=== PATIENT | male | born 1965 | race Caucasian/White ===

== ENCOUNTER → 2017-12-23 | Outpatient (CLI) | payer OTHER ==
[~2017-12-23] MED LIST: CEPH500 PO; HYDACE5325 PO; IBUP800 PO; Keflex500 MG PO; NAPR500 PO; Percocet 5-3251 EACH PO; RXHYD5325 PO; SULTRIDS PO; TRAM50 PO
[2017-12-23 17:47] LABS: Creatinine, Urine Random 58.8 mg/dL (27.00-270.00)
[2017-12-23 17:49] LABS: Microalb/Creat Ratio UR, Rand 8.758 mg/g (0.000-30.000); Microalbumin, Random Urine 5.15 mg/L (0.000-20.000)
== END ==
LOC: LAB 12:24 → LAB SHORT 12:24
PROVIDERS: Nurse Practitioner Family
DX: E11.9 Type 2 diabetes mellitus without complications (principal)
CPT/HCPCS: 82043; 82570

== ENCOUNTER 2018-04-29 00:23 | Emergency (ER) | payer OTHER ==
[~2018-04-29] VITALS: Ht 185.4 cm; Wt 122.5 kg
[2018-04-29] MEDS ORDERED: NIX59 ML TOP (00:53)
[2018-04-29] MEDS ORDERED: BENADRYL25 MG PO (00:53)
== END 2018-04-29 01:06 | disposition home or self-care (01) ==
LOC: ER 00:23
DX: B86 Scabies (principal); F17.200 Nicotine dependence, unspecified, uncomplicated
CPT/HCPCS: Q0163

== ENCOUNTER 2019-07-04 12:36 | Emergency (ER) | payer OTHER ==
[~2019-07-04] VITALS: Ht 185.4 cm; Wt 122.5 kg
[~2019-07-04 12:36] MED LIST changes: +BENADRYL25 MG PO; +NIX59 ML TOP
[2019-07-04] MEDS ORDERED: CYCL10 PO (13:05)
[2019-07-04] MEDS ORDERED: DICL75ER PO (13:05)
[2019-07-04] MEDS ORDERED: PANT40 PO (13:08)
[2019-07-04] MEDS ORDERED: BUPR100 PO (13:08)
[2019-07-04] MEDS ORDERED: ARTHRITIS MED (13:08)
== END 2019-07-04 13:16 | disposition home or self-care (01) ==
LOC: ER 12:36
DX: M26.603 Bilateral temporomandibular joint disorder, unspecified (principal); E11.9 Type 2 diabetes mellitus without complications; F17.200 Nicotine dependence, unspecified, uncomplicated; Z86.73 Personal history of transient ischemic attack (TIA), and cerebral infarction without residual deficits
CPT/HCPCS: 99283

== ENCOUNTER 2020-09-24 22:17 | Emergency (ER) | payer OTHER ==
[~2020-09-24] VITALS: Ht 185.4 cm; Wt 102.1 kg
[~2020-09-24 22:17] MED LIST changes: +ALBU90OI INH; +ARTHRITIS MED; +BUPR100 PO; +CYCL10 PO; +DICL75ER PO; +PANT40 PO
[2020-09-25] MEDS ORDERED: CEPH500 PO (00:08)
== END 2020-09-25 00:48 | disposition home or self-care (01) ==
LOC: ER 22:17
DX: S62.636B Displaced fracture of distal phalanx of right little finger, initial encounter for open fracture (principal); K21.9 Gastro-esophageal reflux disease without esophagitis; J44.9 Chronic obstructive pulmonary disease, unspecified; E11.9 Type 2 diabetes mellitus without complications; F17.200 Nicotine dependence, unspecified, uncomplicated; Z86.73 Personal history of transient ischemic attack (TIA), and cerebral infarction without residual deficits; Z23 Encounter for immunization; W27.8XXA Contact with other nonpowered hand tool, initial encounter
CPT/HCPCS: 73140; 90471; 90714; 99283-25; A9270

== ENCOUNTER 2021-05-11 07:46 | Inpatient (IN) | payer OTHER ==
[~2021-05-11] VITALS: Ht 185.4 cm; Wt 111.0 kg
[2021-05-11 08:21] LABS: Hematocrit 42.5 % (37.0-53.0); Hemoglobin 14.7 g/dL (13.5-17.5); Mean Corpuscular HGB 30.2 pg (26.0-34.0); Mean Corpuscular HGB Conc 34.6 g/dL (31.5-36.5); Mean Corpuscular Volume 87 fL (80-100); Mean Platelet Volume 10.1 fL (9.1-12.4); Platelet Count 147 K/mm3 (150-400); RDW Coefficient Variation 12.3 % (11.7-14.2); RDW Standard Deviation 39.7 fL (35.1-46.3); Red Blood Cell Count 4.86 M/mm3 (4.30-5.90); White Blood Cell Count 8.66 K/mm3 (4.00-11.30)
[2021-05-11 08:44] LABS: Alanine Aminotransfer (ALT/SGP 54 U/L (12-78); Albumin, Blood 2.6 g/dL (3.4-5.0); Albumin/Globulin Ratio 0.6 (0.8-1.8); Alk Phos 61 U/L (50-136); Anion Gap 11 mmol/L (6-16); Aspartate Aminotrans (AST/SGOT 76 U/L (12-37); Bilirubin, Total 0.9 mg/dL (0.1-1.0); Blood Urea Nitrogen 33 mg/dL (8-24); Bun/Creatinine Ratio 27.5 (12.0-20.0); CO2, Blood 23 mmol/L (21-32); Chloride, Blood 102 mmol/L (98-108); Globulin, Blood 4.4 g/dL (2.2-4.0); Glomerular Filtration Rate >60 (60-); Glucose, Blood 129 mg/dL (70-99); Sodium, Blood 136 mmol/L (136-145); Troponin I 0.067 ng/mL (0.000-0.040)
[2021-05-11] MEDS ORDERED: ALBU90OI INH (08:49)
[2021-05-11 08:53] LABS: BAND PERCENT MAN 37 % (0-8); BASOPHILS PERCENT MAN 0 % (0-2); EOSINOPHILS PERCENT MAN 0 % (0-6); LYMPHOCYTES % ATYPICAL MANUAL 2 % (0-0); LYMPHOCYTES ABSOLUTE MAN 1.64 K/mm3 (0.84-5.20); LYMPHOCYTES PERCENT MAN 17 % (21-46); METAMYELOCYTE ABSOLUTE MAN 0.95 K/mm3 (0.00-0.00); METAMYELOCYTE PERCENT MAN 11 % (0-0); MONOCYTES PERCENT MAN 7 % (4-13); NEUTROPHILS ABSOLUTE MAN 5.45 K/mm3 (1.96-9.15); SEG NEUTROPHILS PERCENT MAN 26 % (41-73); TOTAL CELLS COUNTED 100
[2021-05-11 10:13] LABS: SARS-Cov-2 (COVID-19) PCR, MMC NEGATIVE (NEGATIVE)
[2021-05-11 11:40] LABS: U Amphetamine Screen DETECTED; U Barbituate Screen Not Detected; U Benzodiazapine Screen Not Detected; U Buprenorphine Screen Not Detected; U Cannabinoids Screen Not Detected; U Cocaine Screen Not Detected; U Methadone Screen Not Detected; U Methamphetamine Screen DETECTED; U Opiates Screen Not Detected; U Oxycodone Screen Not Detected; U Phencyclidine Screen Not Detected; U Propoxyphene Screen Not Detected
--- NOTE | 2021-05-11 13:13 | NUR ---
Care Assumed 1205- New admit from ED Pt arrived via bed, able to stand and transfer to ICU bed. A/O to location, event, and year. Following directions, slow to respond. LS clear/dim, on 5 L via NC, SPO2 89-92%. States having CP 4/10, on/off x 3 days, states he feels pressure during deep inspiration. States having nausea but no vomiting thus far. Has productive cough but no sputum yet, will send sample. Quickly falls asleep when left alone, snoring, denies use of CPAP at home or oxygen. SIT, MAP > 65.
[2021-05-11 16:50] LABS: Source, Urine Clean Catch
[2021-05-11 17:06] LABS: Appearance, Urine Clear (Clear); Bilirubin, Urine Neg (Neg); Blood, Urine 2+ (Neg); Color, Urine Yellow (P-Yellow); Glucose Qualitative, Urine Neg (Neg); Ketones, Urine Neg (Neg); Leukocyte Esterase, Urine Neg (Neg); Nitrite, Urine Neg (Neg); Protein, Urine 2+ (Neg); Specific Gravity, Urine 1.015 (1.003-1.022); Urobilinogen, Urine NORM (Normal)
--- NOTE | 2021-05-11 17:14 | NUR ---
Provider call Spoke to LAWANDA Vance in regards to patient SBP of 140's. New orders recieved to decrease LR to 75 ml/hr and DC Vanco. Updated on pt also having loose BM. Started PT on VSL tabs. Pt able to ambulate to bedside commode, tolerated well.
[2021-05-11 17:27] LABS: Bacteria Few /hpf; Mucus Light (0-Heavy); Red Blood Cells, Urine 0-2 /hpf (0-2); Squamous Epithelial Cells Few /hpf (Few); White Blood Cells, Urine 0-2 /hpf (0-5)
--- NOTE | 2021-05-11 18:11 | NUR ---
Shift summary Pt remains A/O X4, location, event, year, and following commands. Able to ambulate to bedside commode. LR @ 75 ml/hr, MAP > 65. SIT. Remains on 5 L NC, SPO2 90'S. Snoring while sleeping. Spoke to patients girlfriend and updated on current care being provided. Watching TV currently. Will report to oncoming shift.
--- NOTE | 2021-05-11 19:30 | NUR ---
REPORT RECEIVED-CARE ASSUMED-LR INFUSING @ 75 ML/HR. PT AWAKE-WATCHING TV. CONTINUE ASSESSMENTS AND CARE.
[2021-05-12 03:29] LABS: Hematocrit 36.1 % (37.0-53.0); Hemoglobin 12.3 g/dL (13.5-17.5); Mean Corpuscular HGB 29.8 pg (26.0-34.0); Mean Corpuscular HGB Conc 34.1 g/dL (31.5-36.5); Mean Corpuscular Volume 87 fL (80-100); Mean Platelet Volume 9.8 fL (9.1-12.4); Platelet Count 138 K/mm3 (150-400); RDW Coefficient Variation 12.5 % (11.7-14.2); Red Blood Cell Count 4.13 M/mm3 (4.30-5.90); White Blood Cell Count 11.33 K/mm3 (4.00-11.30)
[2021-05-12 03:49] LABS: Alanine Aminotransfer (ALT/SGP 38 U/L (12-78); Albumin/Globulin Ratio 0.5 (0.8-1.8); Alk Phos 57 U/L (50-136); Anion Gap 7 mmol/L (6-16); Aspartate Aminotrans (AST/SGOT 47 U/L (12-37); Blood Urea Nitrogen 19 mg/dL (8-24); CO2, Blood 25 mmol/L (21-32); Calcium, Blood 8.6 mg/dL (8.5-10.1); Chloride, Blood 107 mmol/L (98-108); Creatinine, Blood 0.76 mg/dL (0.60-1.20); Glomerular Filtration Rate >60 (60-); Glucose, Blood 88 mg/dL (70-99); Magnesium, Blood 1.8 mg/dL (1.6-2.4); Potassium, Blood 3.6 mmol/L (3.5-5.5); Sodium, Blood 139 mmol/L (136-145)
[2021-05-12 03:54] LABS: BAND PERCENT MAN 30 % (0-8); BASOPHILS PERCENT MAN 0 % (0-2); EOSINOPHILS ABSOLUTE MAN 0.11 K/mm3 (0.00-0.68); EOSINOPHILS PERCENT MAN 1 % (0-6); LYMPHOCYTES ABSOLUTE MAN 1.47 K/mm3 (0.84-5.20); LYMPHOCYTES PERCENT MAN 13 % (21-46); METAMYELOCYTE ABSOLUTE MAN 0.11 K/mm3 (0.00-0.00); METAMYELOCYTE PERCENT MAN 1 % (0-0); MONOCYTES ABSOLUTE MAN 0.33 K/mm3 (0.16-1.47); MONOCYTES PERCENT MAN 3 % (4-13); NEUTROPHILS ABSOLUTE MAN 9.29 K/mm3 (1.96-9.15); SEG NEUTROPHILS PERCENT MAN 52 % (41-73); TOTAL CELLS COUNTED 100
--- NOTE | 2021-05-12 06:16 | NUR ---
END OF SHIFT NOTE PT ON 5 L N/C OVERNIGHT-DESATS WITH ACTIVITY-PT UP TO BSC TO VOID-ONGOING HACKING COUGH. ST ON THE MONITOR 100-118. VITALS-SURGE SHIFT ASSESSMENTS X 3-AND GTT RATES NOTED IN FLOWSHEET. CONINUTE ASSESSMENTS AND CARE TILL REPORT OFF TO ONCOMING SHIFT RN.
--- NOTE | 2021-05-12 17:12 | NUR ---
Telephone report received from Caroline Rees RN at this time. Anticipate arrival of pt to PCU 3 shortly.
--- NOTE | 2021-05-12 17:46 | NUR ---
Received pt from ICU in wheelchair, wearing oxygen at 5 l/min. Frequent produtive cough. Scattered crackles auscultated throughout, no wheezing. Mild dyspnea and tachypnea noted, but pt states that he is so much better than yesterday. States it's like "night and day". Lactated ringer's infusing via IV right antecubital space. States good appetite, asking also for ice water. He called his fiance Kassandra on the phone and told her that he had been moved to PCU. Sitting up in bed, eating dinner at this time, watching TV. Sinus tachycardia noted on threat monitoring analyst, rate 104-109 bpm.
--- NOTE | 2021-05-12 19:35 | NUR ---
Assumed care of pt at 1900. Patient sitting in bed, sleeping. 5L NC and satting above 90%. Afib avg 95, but has jumped numerous times into 170's. Patient is very lethargic. Awake to answer questions appropriately, but quickly falls back asleep. Dim t/o with a strong non-productive cough. Redness noted at the back of the mouth/throat.
--- NOTE | 2021-05-12 19:45 | NUR ---
PT'S HEART RATE MAINTAINED IN 170'S FOR GREATER THAN 15 MIN; DR. MEREDITH WAS CALLED AT 0828; ORDERS PROVIDED FOR RX FOR TACHYCARDIA AND ADMINISTERED PER MAR; PROVIDER AT BEDSIDE TO ASSESS; HEART RATE MAINTAINED IN 80'S-90'S AFTER METOPROLOL/LABETALOL ADMINISTRATION; STATUS CHANGE ORDER PLACED AT 0856 FOR PCU; PT VOIDED 3X IN TOILET AND REFUSED URINAL; RX GIVEN PER MAR; PT REPORTED FRUSTRATION WITH ICU MONITORING; PT'S PAULA GALLEGOS CALLED FOR UPDATES 2X AND WAS CALLED 1X TO NOTIFY OF PT'S ROOM ASSIGNMENT IN PCU; AT 1709 ADELSO, RN WAS CALLED AND REPORT GIVEN OVER THE PHONE; PT LEFT UNIT AT 1725 VIA WHEELCHAIR WITH 5LNC, NO MONITORING, WITH PERSONAL PHONE AND CLOTHING, ACCOMPANIED BY [email or web address]; PT REPORTED NO ADDITIONAL CONCERNS AT THIST [facility]
--- NOTE | 2021-05-13 04:02 | NUR ---
Patient appears very drowsy and exhausted. Afib in the 170's at the beginning of the shift, cardizem was ordered but after the PO metoprolol the HR slowed to 80-90's still in Afib. Diminished t/o with strong non-productive cough. Satting high 90's on 6L HF NC. Patient had a hard time getting quality sleep d/t waking up and coughing or nausea. PRN Zofran and Ambien given and patient resting comfortably. Will report to dayshift RN.
[2021-05-13 10:11] LABS: BASOPHILS ABSOLUTE AUTO 0.05 K/mm3 (0.00-0.23); BASOPHILS PERCENT AUTO 1 % (0-2); EOSINOPHILS ABSOLUTE AUTO 0.27 K/mm3 (0.00-0.68); EOSINOPHILS PERCENT AUTO 3 % (0-6); Hematocrit 33.7 % (37.0-53.0); Hemoglobin 11.6 g/dL (13.5-17.5); IMMATURE GRAN PERCENT AUTO 2 % (0-1); LYMPHOCYTES PERCENT AUTO 10 % (21-46); MONOCYTES ABSOLUTE AUTO 1.33 K/mm3 (0.16-1.47); MONOCYTES PERCENT AUTO 13 % (4-13); Mean Corpuscular HGB 30.1 pg (26.0-34.0); Mean Corpuscular HGB Conc 34.4 g/dL (31.5-36.5); Mean Corpuscular Volume 88 fL (80-100); NEUTROPHILS ABSOLUTE AUTO 7.26 K/mm3 (1.96-9.15); NEUTROPHILS PERCENT AUTO 72 % (41-73); Platelet Count 160 K/mm3 (150-400); RDW Coefficient Variation 12.5 % (11.7-14.2); RDW Standard Deviation 39.9 fL (35.1-46.3); Red Blood Cell Count 3.85 M/mm3 (4.30-5.90); White Blood Cell Count 10.11 K/mm3 (4.00-11.30)
--- NOTE | 2021-05-13 16:38 | NUR ---
SHIFT SUMMARY ASSUMED CARE OF PATIENT AT APPROX 0700. PT APPEARS TO BE SLEEPING, RESPONDING TO VERBAL STIMULI, BUT QUICKLY FALLING BACK TO SLEEP. UNABLE TO HOLD HEAD UP FOR LONG. ANSWERING QUESTIONS APPROPRAITELY. PT DENIES PAIN, CHEST PAIN, NAUSEA, DIZZINESS AND NUMB/TINGLING. PT REPORTS DRY NONPRODUCTIVE COUGHT. PT ON 5-6L O2 VIA NC, THIS AM, TITRATED TO 4L O2 VIA NC THIS AM. RESP RATE 20-38 BREATHES. PT RECIEVING IV ANTIVBIOTICS AND IV FLUIDS. OTHER VSS. NO OTHER ACUTE CHANGES NOTED. WILL CONTINUE TO MONITOR UNITL REPORT GIVEN TO ONCOMING RN.
--- NOTE | 2021-05-14 02:52 | NUR ---
No acute changes this shift. VSS. Patient c/o throat pain r/t coughing, throat is noted to be red and inflamed. Patient slept most of the night sitting in high fowlers (most comfortable per patient). Very lethargic when awake, a&ox4 but quickly falls back asleep after answering questions. R and L lower lobes dim, R top lobes fine crackles, L top lobe ronchi. Sinus rhythm/Sinus tach 90-100's, VSS. Urine noted to be hernesto in color, LR @75ml/hr. Will report to dayshift RN.
[2021-05-14 04:08] LABS: Hemoglobin 11.9 g/dL (13.5-17.5); Mean Corpuscular HGB 29.6 pg (26.0-34.0); Mean Corpuscular Volume 87 fL (80-100); Mean Platelet Volume 9.7 fL (9.1-12.4); Platelet Count 160 K/mm3 (150-400); RDW Coefficient Variation 12.5 % (11.7-14.2); Red Blood Cell Count 4.02 M/mm3 (4.30-5.90); White Blood Cell Count 10.02 K/mm3 (4.00-11.30)
[2021-05-14 04:26] LABS: Albumin, Blood 1.7 g/dL (3.4-5.0); Anion Gap 9 mmol/L (6-16); Blood Urea Nitrogen 14 mg/dL (8-24); Bun/Creatinine Ratio 21.6 (12.0-20.0); CO2, Blood 26 mmol/L (21-32); Calcium, Blood 8.4 mg/dL (8.5-10.1); Chloride, Blood 104 mmol/L (98-108); Creatinine, Blood 0.65 mg/dL (0.60-1.20); Glomerular Filtration Rate >60 (60-); Glucose, Blood 91 mg/dL (70-99); Phosphorus, Blood 3.2 mg/dL (2.5-4.9); Potassium, Blood 3.2 mmol/L (3.5-5.5); Sodium, Blood 139 mmol/L (136-145)
--- NOTE | 2021-05-14 06:04 | NUR ---
While giving patient morning meds, the patient popped in and back out of A.Fib (avg rate 90's).
--- NOTE | 2021-05-14 10:07 | NUR ---
AM NOTE ASSUMED CARE OF PT AT APPROX 0700. PT ALERT, ORIENTED. CALM AND COOPERATIVE WITH CARE. PT RESTING IN BED. UP SBA IN ROOM. PT DENIES PAIN, CHEST PAIN, NAS[place], DIZZINESS AND NUMB/TINGLING. PT SOB WITH MOVEMENT, SPO2 >90% ON 4L O2 VIA NC, RESP RATE 20-30'S. PRODUCTIVE COUGH, THICK MARSH SPUTUM. TELE SINUS TACH. BP STABE. OTHER VSS. NO OTHER ACUTE CHAGNES NOTED. WILL CONTINUE TO MONITOR.
[2021-05-14 16:38] LABS: Potassium, Blood 3.4 mmol/L (3.5-5.5)
--- NOTE | 2021-05-14 18:15 | NUR ---
SHIFT SUMMARY PT REPROTS BACK PAIN AFTER COUGHING EPISODE, 5/10 PAIN, MEIDCATED WITH TYLENOL AND HEATING PAD WITH POSITIVE RESULTS. TITRATED PT TO 2L O2 VIA NC, SPO2 DESAT TO 86-88%, TITRATED TO 3L O2 VIA NC, >90%. PT CONTINUES TO HAVE COUGHIN EPISODES, MEDCIATED WITH ROBITUSSEN WITH COEDINE WITH POSITIVE RESUTLS. TEMP 100.2 THIS AM, TRENIDING DOWN T/O SHIFT. OTHER VSS. NO OTHER ACUTE CHANGES NOTED. WILL CONTINUE TO MONITOR UNTIL REPORT GIVEN TO ONCOMING RN.
[2021-05-15 04:01] LABS: Hematocrit 34.4 % (37.0-53.0); Hemoglobin 11.8 g/dL (13.5-17.5); Mean Corpuscular HGB 29.9 pg (26.0-34.0); Mean Corpuscular HGB Conc 34.3 g/dL (31.5-36.5); Mean Corpuscular Volume 87 fL (80-100); Mean Platelet Volume 9.9 fL (9.1-12.4); Platelet Count 173 K/mm3 (150-400); RDW Coefficient Variation 12.6 % (11.7-14.2); RDW Standard Deviation 40.2 fL (35.1-46.3); Red Blood Cell Count 3.94 M/mm3 (4.30-5.90); White Blood Cell Count 12.86 K/mm3 (4.00-11.30)
[2021-05-15 04:21] LABS: Albumin, Blood 1.8 g/dL (3.4-5.0); Anion Gap 7 mmol/L (6-16); Blood Urea Nitrogen 12 mg/dL (8-24); Bun/Creatinine Ratio 18.8 (12.0-20.0); CO2, Blood 25 mmol/L (21-32); Calcium, Blood 8.4 mg/dL (8.5-10.1); Chloride, Blood 105 mmol/L (98-108); Creatinine, Blood 0.64 mg/dL (0.60-1.20); Glomerular Filtration Rate >60 (60-); Glucose, Blood 98 mg/dL (70-99); Phosphorus, Blood 2.6 mg/dL (2.5-4.9); Potassium, Blood 3.7 mmol/L (3.5-5.5); Sodium, Blood 137 mmol/L (136-145)
--- NOTE | 2021-05-15 09:11 | NUR ---
AM NOTE AND TRANSFER TO [facility] ASSUMED CARE OF PATIEINT AT APPROX 0700. PT A&Ox4; CALM AND COOPERATIVE WITH CARE. PT RESTING IN BED. UP TO SIDE ON BED IND, UP TO BSC 1 PERSON ASSIST. SOB WITH EXERTION, ON 4L O2 VIA NC THIS AM, PRODUCTIVE COUGH THICK MARSH SPUTUM. PT REPORTS BACK PAIN, STARTED YESTERDAY AFTER COUGHING SPELL, DENIES NEED FOR INTERVENTION AT THIS TIME. PT DENIES NAUSEA, HOWEVER REPORTS POOR APPETITE. PT PT REPORTS INTERMITTENT NUMBNESS TO BLE, REPORTS NORMAL FOR HIM. VSS. NO OTHER ACUTE CHANGES NOTED. REPORT GIVEN TO ZORAN DAVALOS ASSUMING CARE OF PATIENT. PT LEFT ROOM VIA WHEELCHAIR AT APPROX 0920.
--- NOTE | 2021-05-15 09:35 | NUR ---
ASSUMED CARE OF PT. REPORT RECEIVED FROM DAVION DAVALOS IN PCU. PT ARRIVED AT 925. PT ORIENTED TO ROOM, CALL LIGHT AND MED FLOOR. PT IV LR RESTARTED AT 75 ML/HR PER ORDER. PT VITALS OBTAINED. PT COUGHING ON TX AND GAVE CEPACOL LOZENGE. NO ACUTE CONCERNS AT THIS TIME. BED IN LOW POSITION AND CALL LIGHT IN REACH.
--- NOTE | 2021-05-15 19:29 | NUR ---
SHIFT SUMMARY: PT A/O X4 STANDBY ASSIST. PT HAD LOW GRADE FEVER THIS AM AND TYLENOL GIVEN AND HAS BEEN AFEBRILE SINCE. PT HAS HARSH COUGH, TESSALON PEARLS HELPFUL IN CONTROLLING COUGH. PT HAS MOD AMT OF SPUTUM PRODUCTION SERRANO GREEN COLOR. PT REPORTS PAIN IN BACK FROM COUGH BUT DENIES NEED FOR PAIN MEDICATION.
[2021-05-16 04:56] LABS: Hematocrit 32.6 % (37.0-53.0); Mean Corpuscular HGB 29.5 pg (26.0-34.0); Mean Corpuscular HGB Conc 33.7 g/dL (31.5-36.5); Mean Corpuscular Volume 87 fL (80-100); Mean Platelet Volume 9.7 fL (9.1-12.4); Platelet Count 193 K/mm3 (150-400); RDW Coefficient Variation 12.5 % (11.7-14.2); RDW Standard Deviation 40.4 fL (35.1-46.3); Red Blood Cell Count 3.73 M/mm3 (4.30-5.90); White Blood Cell Count 12.52 K/mm3 (4.00-11.30)
[2021-05-16 05:15] LABS: Albumin, Blood 1.6 g/dL (3.4-5.0); Anion Gap 8 mmol/L (6-16); Blood Urea Nitrogen 11 mg/dL (8-24); Bun/Creatinine Ratio 17.6 (12.0-20.0); CO2, Blood 24 mmol/L (21-32); Calcium, Blood 8.6 mg/dL (8.5-10.1); Chloride, Blood 107 mmol/L (98-108); Creatinine, Blood 0.63 mg/dL (0.60-1.20); Glomerular Filtration Rate >60 (60-); Glucose, Blood 89 mg/dL (70-99); Phosphorus, Blood 3.6 mg/dL (2.5-4.9); Potassium, Blood 3.9 mmol/L (3.5-5.5); Sodium, Blood 139 mmol/L (136-145)
--- NOTE | 2021-05-16 05:24 | NUR ---
Pt is AAO3, has SOBOE, pt on IVF, calls appropriately. Plan: Continue POC, ABx
--- NOTE | 2021-05-16 18:40 | NUR ---
a+o, medicated as prescribed, pharmacy stated that LR and Vanco could be run conncurrently, ran abx seperatly, call light in reach, rm air, lr infusing with no s/sx of infection or infiltration noted at site
--- NOTE | 2021-05-17 04:55 | NUR ---
PT IS A&OX4. DIMINISHED LUNG SOUNDS NOTED IN ALL LOBES. PT C/O PAIN. PRN PAIN MED ADMINISTERED PER EMAR, PT IS 4L O2. ADLS PROVIDED, SAFETY MEASRES IN PLACE, WILL CONTINUE TRO MONITOR.
[2021-05-17 08:20] LABS: BASOPHILS ABSOLUTE AUTO 0.08 K/mm3 (0.00-0.23); BASOPHILS PERCENT AUTO 1 % (0-2); EOSINOPHILS ABSOLUTE AUTO 0.52 K/mm3 (0.00-0.68); EOSINOPHILS PERCENT AUTO 5 % (0-6); Hemoglobin 10.5 g/dL (13.5-17.5); IMMATURE GRAN ABSOLUTE AUTO 0.56 K/mm3 (0.00-0.10); IMMATURE GRAN PERCENT AUTO 5 % (0-1); LYMPHOCYTES ABSOLUTE AUTO 1.49 K/mm3 (0.84-5.20); LYMPHOCYTES PERCENT AUTO 14 % (21-46); MONOCYTES ABSOLUTE AUTO 0.77 K/mm3 (0.16-1.47); MONOCYTES PERCENT AUTO 7 % (4-13); Mean Corpuscular HGB Conc 33.9 g/dL (31.5-36.5); Mean Corpuscular Volume 89 fL (80-100); NEUTROPHILS ABSOLUTE AUTO 7.59 K/mm3 (1.96-9.15); NEUTROPHILS PERCENT AUTO 69 % (41-73); RDW Coefficient Variation 12.9 % (11.7-14.2); RDW Standard Deviation 42.2 fL (35.1-46.3); White Blood Cell Count 11.01 K/mm3 (4.00-11.30)
[2021-05-17 08:22] LABS: Mean Platelet Volume 9.8 fL (9.1-12.4); Platelet Count 242 K/mm3 (150-400)
[2021-05-17 08:35] LABS: BASOPHILS PERCENT MAN 0 % (0-2); EOSINOPHILS ABSOLUTE MAN 0.33 K/mm3 (0.00-0.68); EOSINOPHILS PERCENT MAN 3 % (0-6); LYMPHOCYTES PERCENT MAN 10 % (21-46); MONOCYTES ABSOLUTE MAN 0.55 K/mm3 (0.16-1.47); MONOCYTES PERCENT MAN 5 % (4-13); MYELOCYTE ABSOLUTE MAN 0.55 K/mm3 (0.00-0.00); MYELOCYTE PERCENT MAN 5 % (0-0); NEUTROPHILS ABSOLUTE MAN 8.47 K/mm3 (1.96-9.15); SEG NEUTROPHILS PERCENT MAN 77 % (41-73); TOTAL CELLS COUNTED 100
[2021-05-17 11:29] LABS: Albumin, Blood 1.5 g/dL (3.4-5.0); Anion Gap 8 mmol/L (6-16); Blood Urea Nitrogen 12 mg/dL (8-24); CO2, Blood 22 mmol/L (21-32); Calcium, Blood 8.2 mg/dL (8.5-10.1); Chloride, Blood 110 mmol/L (98-108); Creatinine, Blood 0.67 mg/dL (0.60-1.20); Glomerular Filtration Rate >60 (60-); Glucose, Blood 95 mg/dL (70-99); Phosphorus, Blood 3.8 mg/dL (2.5-4.9); Potassium, Blood 3.7 mmol/L (3.5-5.5); Sodium, Blood 140 mmol/L (136-145)
[2021-05-17] MEDS ORDERED: BENZ100A PO (15:46)
[2021-05-17] MEDS ORDERED: BENMENLOZ MT (15:46)
[2021-05-17] MEDS ORDERED: SULFAMETHOXAZO1 EAC1 PO (15:47)
[2021-05-17] MEDS ORDERED: ROBITUSSIN PO (15:48)
[2021-05-17] MEDS ORDERED: GUAIFENESIN ER600 MG PO (15:48)
[2021-05-17] MEDS ORDERED: METO25 PO (15:49)
[2021-05-17] MEDS ORDERED: AMOCLA875 PO (15:49)
[2021-05-17] MEDS ORDERED: VISBIOME 112.51 EACH PO (15:49)
== END 2021-05-17 16:16 | disposition home or self-care (01) | DRG 871 ==
LOC: ER 07:46 → ICUW 10:40 → PCU 05-12 17:30 → MEDS 05-15 09:31
PROVIDERS: Family Medicine; Internal Medicine; Nurse Practitioner Acute Care; Physician Assistant; ADMIT Internal Medicine
DX: A40.3 Sepsis due to Streptococcus pneumoniae (principal); R65.21 Severe sepsis with septic shock; J96.01 Acute respiratory failure with hypoxia; J13 Pneumonia due to Streptococcus pneumoniae; J44.0 Chronic obstructive pulmonary disease with (acute) lower respiratory infection; I24.8 Other forms of acute ischemic heart disease; I48.0 Paroxysmal atrial fibrillation; E87.6 Hypokalemia; Z20.822 Contact with and (suspected) exposure to COVID-19; E11.9 Type 2 diabetes mellitus without complications; K21.9 Gastro-esophageal reflux disease without esophagitis; F32.9 Major depressive disorder, single episode, unspecified; F17.210 Nicotine dependence, cigarettes, uncomplicated; G40.909 Epilepsy, unspecified, not intractable, without status epilepticus; Z86.73 Personal history of transient ischemic attack (TIA), and cerebral infarction without residual deficits; Z86.14 Personal history of Methicillin resistant Staphylococcus aureus infection; Z79.899 Other long term (current) drug therapy
CPT/HCPCS: 36415; 71045; 71260; 80053; 80069; 81001; 83605; 83690; 83735; 83880; 84132; 84145; 84443; 84484; 85025; 85027; 86140; 87040; 87070; 87077; 87147; 87186; 87205; 87449; 93005; 93010; 93306; 94640; 94760; 94762; 96365; 96375; 99285-25; A9270; C9113; J0456; J0696; J1650; J1885; J2405; J3370; J7030; J7050; J7120; Q9967; U0004

== ENCOUNTER → 2022-01-17 | Outpatient (CLI) | payer OTHER ==
[~2022-01-17] MED LIST changes: +AMOCLA875 PO; +BENMENLOZ MT; +BENZ100A PO; +GUAIFENESIN ER600 MG PO; +METO25 PO; +ROBITUSSIN PO; +SULFAMETHOXAZO1 EAC1 PO; +VISBIOME 112.51 EACH PO
[2022-01-17 13:27] LABS: BASOPHILS ABSOLUTE AUTO 0.03 K/mm3 (0.00-0.23); BASOPHILS PERCENT AUTO 0 % (0-2); EOSINOPHILS ABSOLUTE AUTO 0.36 K/mm3 (0.00-0.68); EOSINOPHILS PERCENT AUTO 4 % (0-6); Hematocrit 41.9 % (37.0-53.0); Hemoglobin 14.3 g/dL (13.5-17.5); IMMATURE GRAN ABSOLUTE AUTO 0.03 K/mm3 (0.00-0.10); IMMATURE GRAN PERCENT AUTO 0 % (0-1); LYMPHOCYTES ABSOLUTE AUTO 2.61 K/mm3 (0.84-5.20); LYMPHOCYTES PERCENT AUTO 29 % (21-46); MONOCYTES ABSOLUTE AUTO 0.83 K/mm3 (0.16-1.47); MONOCYTES PERCENT AUTO 9 % (4-13); Mean Corpuscular HGB 30.1 pg (26.0-34.0); Mean Corpuscular HGB Conc 34.1 g/dL (31.5-36.5); Mean Corpuscular Volume 88 fL (80-100); Mean Platelet Volume 10.1 fL (9.1-12.4); NEUTROPHILS ABSOLUTE AUTO 5.02 K/mm3 (1.96-9.15); NEUTROPHILS PERCENT AUTO 57 % (41-73); Platelet Count 200 K/mm3 (150-400); RDW Standard Deviation 39.1 fL (35.1-46.3); Red Blood Cell Count 4.75 M/mm3 (4.30-5.90); White Blood Cell Count 8.88 K/mm3 (4.00-11.30)
[2022-01-17 13:56] LABS: Alanine Aminotransfer (ALT/SGP 50 U/L (12-78); Albumin, Blood 3.7 g/dL (3.4-5.0); Albumin/Globulin Ratio 1.2 (0.8-1.8); Alk Phos 84 U/L (50-136); Anion Gap 7 mmol/L (6-16); Aspartate Aminotrans (AST/SGOT 25 U/L (12-37); Bilirubin, Total 0.3 mg/dL (0.1-1.0); Blood Urea Nitrogen 18 mg/dL (8-24); CHOL/HDL RATIO 4.1; CO2, Blood 24 mmol/L (21-32); Calcium, Blood 8.8 mg/dL (8.5-10.1); Chloride, Blood 110 mmol/L (98-108); Cholesterol 155 mg/dL (50-200); Creatinine, Blood 0.86 mg/dL (0.60-1.20); Globulin, Blood 3.2 g/dL (2.2-4.0); Glomerular Filtration Rate 102 (60-); Glucose, Blood 106 mg/dL (70-99); HDL Cholesterol 38 mg/dL (>39); LDL/HDL RATIO 2.5; Low Density Lipoprotein Chol 93 mg/dL (0-110); Sodium, Blood 141 mmol/L (136-145); Total Protein, Blood 6.9 g/dL (6.4-8.2); Triglycerides 118 mg/dL (30-160); Very Low Density Lipoprot Chol 23 mg/dL (6-32)
== END | disposition home or self-care (01) ==
LOC: LAB SHORT 12:17
PROVIDERS: Nurse Practitioner
DX: Z13.6 Encounter for screening for cardiovascular disorders (principal); I48.0 Paroxysmal atrial fibrillation
CPT/HCPCS: 80053; 80061; 85025

== ENCOUNTER 2023-06-03 13:03 | Emergency (ER) | payer OTHER ==
[~2023-06-03] VITALS: Ht 185.4 cm; Wt 136.1 kg
[2023-06-03 13:25] VITALS: BP 115/81
== END 2023-06-03 15:23 | disposition home or self-care (01) ==
LOC: ER 13:03
DX: S52.202A Unspecified fracture of shaft of left ulna, initial encounter for closed fracture (principal); W21.19XA Struck by other bat, racquet or club, initial encounter; J44.9 Chronic obstructive pulmonary disease, unspecified; E11.9 Type 2 diabetes mellitus without complications; G43.909 Migraine, unspecified, not intractable, without status migrainosus; F17.210 Nicotine dependence, cigarettes, uncomplicated; Z79.899 Other long term (current) drug therapy
CPT/HCPCS: 29105; 99283-25